=== PATIENT | female | born 1990 | race Caucasian/White ===

== ENCOUNTER → 2023-02-13 12:53 | Outpatient (CLI) | payer BC, SELFPAY ==
--- NOTE | ~2023-02-13 | MR_ITS ---
EXAMINATION: MR knee LT wo con DATE: 02/13/2023 13:26 INDICATION: Internal derangement of the left knee with left knee joint effusion. TECHNIQUE: Magnetic resonance imaging (MRI) of the left knee was performed without intravenous contra st. Sequences included coronal PD-weighted FSE, coronal PD-weighted FS FSE, sagittal T2-weighted FSE , sagittal PD-weighted FS FSE and axial PD weighted fat saturated FSE. COMPARISON: None. FINDINGS: Medial compartment: Displaced bucket-handle tear of the medial meniscus with small amount residual nondisplaced meniscus along the body and posterior horn with the majority the tissue in the body and posterior horn lateral ly displaced and extending anteroposteriorly between the articular cartilage of the lateral margin an terior weightbearing medial femoral condyle and the cartilage along the shoulder of the intercondylar eminence. There is a small secondary tear plane along the inner margin of the remaining nondisplaced meniscal tissue at the posterior horn. Mild partial-thickness cartilage loss and chondral surface re gularity along the posterior rim of the medial tibial plateau. Likely tiny partial-thickness chondral fissure along the anterior weightbearing medial femoral condyle. Lateral compartment: Lateral meniscus is normal. Deep chondral fissuring along the anterior weightbearing medial femoral c ondyle. There is mild shallow chondral surface regularity along the posterior weightbearing lateral f emoral condyle. Additional partial thickness chondral fissuring at the central to medial aspect of th e lateral tibial plateau where there is small region of mild subarticular edema-like signal change. Patellofemoral compartment: Patellar cartilage is normal. Deep chondral fissuring along the trochlear groove and inferior aspect of the medial trochlea. Associated small focus of underlying subarticular edema-like signal change at the inferolateral aspect of the medial trochlea. Ligaments and tendons: Postoperative change of prior anterior cruciate ligament reconstruction with failure of the graft. Po sterior cruciate ligament is normal. The medial collateral ligament and fibular collateral ligament c omplex are normal. The extensor mechanism is normal. The visualized medial and lateral hamstring tend ons as well as the iliotibial band are normal. Fluid: Moderate-sized left knee joint effusion. No loose osteochondral bodies identified. Osseous/other: Bone alignment is normal. No fracture or pathologic marrow replacing process. IMPRESSION: 1. Failure of a prior anterior cruciate ligament reconstruction. 2. Displaced bucket-handle tear of the medial meniscus. 3. 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 4. Moderate-sized knee joint effusion. Reviewed, dictated and finalized at location A. IMPRESSION: 1. Failure of a prior anterior cruciate ligament reconstruction. 2. Displaced bucket-handle tear of the medial meniscus. 3. Mild tricompartmental osteoarthritis with moderate grade chondromalacia in a ll 3 compartments and small regions of high-grade chondral malacia the lateral and patellofemoral compartments. 4. Moderate-sized knee joint effusion.
== END ==
PROVIDERS: PCP Physician Assistant; Visit Provider Physician Assistant
DX: M17.12 Unilateral primary osteoarthritis, left knee (principal); M25.462 Effusion, left knee; S83.212A Bucket-handle tear of medial meniscus, current injury, left knee, initial encounter; M94.262 Chondromalacia, left knee
CPT/HCPCS: 73721

== ENCOUNTER 2025-01-09 10:53 | Emergency (ER) | payer BC, SELFPAY ==
--- OUTSIDE RECORDS SUMMARY | 2021-09-05 10:50 | XMS_ITS | Continuity of Care Document ---
Author Organization [facility] Address [address] [place] [id number] Phone Care Team Providers Care Helicopter Crew Chief Name Role Phone Sandro Jackson MD Unavailable Unavailable Allergies, Adverse Reactions, Alerts Substance Reaction Status Criticality No Known Allergies Active No Inform ation Medications Medication Instructions Dosage Effective Dates (start - stop) Status Comments dicyclomine 20 mg tablet take 1 tablet by oral route 4 times a day as needed for abdomen pain & diarrhea - Active Wellbutrin 300 mg Tab Er 1 times per day - Active Dialyvite Vitamin D3 Max 1.25 mg Tab 1 times per day - Active Nexium 10 mg Oral 1 times per day - Active Wellbutrin XL 300 mg 24 hr tablet, extended release take 1 tablet by oral route every day 300 MG - Active esomeprazole magnesium DR 10 mg granules delayed release for susp daily - Active Procedures Procedure Date Offic/outpt E&m New Mod-mi 45 2 Advance Directives Directive Yes / No Effective Date File Name No Information Encounters Encounter Description Practice Location Reason(s) For Visit Diagnoses Date Provider Providers Copied on Encounter [facility], [address] [place] [address], [id number] tel:[phone] [facility] No Information 2 Manuel Jo. [address] [place] [address], [id number] , . tel:[phone] [facility], [address] [place] [address], [id number] tel:[phone] [facility] No Information 2 [facility] Sruthi. [address] [place] [address], [id number] , [place]. [phone] Offic/outpt E&m New Mod-hi 45 [facility], [address] [place] [address], [place], [place], [id number] tel:[phone] [facility] abdominal pain (chief complaint) Intermittent diarrheaRecta l bleedingLUQ abdominal painHeartburn 2 [facility] Sruthi. [address] [place] [address], [id number] , [place]. tel:[phone] Referring Provider: Jo Ann Bermeo MD, [address] , [place], [address]. tel:[phone] Family History Family Member Type Diagnosis Age At Onset Paternal Grandmother Problem (finding) Diabetes Type I I Paternal Grandmother Problem (finding) Thyroid Disease Paternal Grandmother Problem (finding) Asthma/COPD Father Problem (finding) Cancer (other types) Father Problem (finding) Alcoholism Father Problem Colon polyps Maternal Grandmother Problem (finding) Kidney Disease Paternal Grandmother Problem (finding) Heart Disease Paternal Grandmother Problem (finding) Colon Cancer Maternal Grandmother Problem (finding) Breast Cancer Paternal Grandmother Problem (finding) Stroke Maternal Grandfather Problem (finding) Heart Disease Father Problem (finding) Diabetes Type II Paternal Grandmother Problem (finding) Cancer (other t ypes) Paternal grandmother Problem cancer of colon 70 Father Problem (finding) Heart Disease Immunizations Vaccine Date Status Comments Flu (split) (3 yrs or older) administered Source: Other Provider SARS-COV-2 COVID-19 Inactiva luis Virus Non-US Vaccine Product (QAZCOVID-IN) administered Adelina rce: Other Provider SARS-COV-2 COVID-19 Non-US V accine, Specific Product Unknown administered Source: Other P rovider SARS-COV-2 (COVID-19) vaccin e, UNSPECIFIED administered Source: Other Provid er Payers Payer name Insurance type Covered green party ID Authoriza tion(s) No Information Social History Type Description Quantity Date Captured Comments Sex Female Smoking Status No Information Chief Complaint And Reason For Visit No Information Reason For Referral Reason For Referral No Information Plan Of Treatment Date Type Action Status Patient Education Colonoscopy: Before You r Procedure completed Patient Education Using Your Medicines: C are Instructio~ completed Patient Education Upper GI Endoscopy: Bef ore Your Proce~ completed History Of Present Illness Encounter Date Complaint History Of Prese nt Illness abdominal pain The patient is a 31-year-old, female referred for abdominal pain and rectal bleeding.The patient reports a chronic, intermittent LUQ pain since the of her son approximately 6 years ago. This presents within 15-20 minutes of a meal, and feels like a burning / stabbing sort of pain. The patient may be temporarily improved with TUMS, esomeprazole or a bowel movement, but will reoccur shortly after and will often be present in this fashion for 1-3 days. Accompanying the pain she has diarrhea. This also lasts for 1-3 days, and often will progress into bloody diarrhea after several bowel movements. Outside of these events she has a daily bowel movement without blood. She notes chronic heartburn which is typically well managed with esomeprazole 20mg daily. She has breakthrough symptoms a couple of times monthly. She notes a 60 pound weight loss over two years related to reduced portions, reduced carbohydrates and increased physical activity. Functional Status Date Functional Assessmen t No Information Instructions Date Instruction Additional Infor neisha keep a food diary, m onitor for potential triggers to symptoms Related to Intermittent diarrhea dicyclomine 20mg QID prn for abdominal pain and / or diarrhea #60 + 1 Related to Intermittent diarrhea continue esomeprazole daily Rela luis to Heartburn continue with diet as currently doing Related to Heartburn Assessments Type Assessment Date No Information Patient Care Teams Name Effective Dates (start - stop) Status Members No Information
--- OUTSIDE RECORDS SUMMARY | 2022-08-09 02:49 | XMS_ITS | Continuity of Care Document ---
Author Organization [facility] Address [address] [place] [address] Phone Care Team Providers Care Iv Rn Name Role Phone Ira Montesinos PT Unavailable Unavailable Procedures Procedure Date Therapeutic Activities Neuromuscular Re-Ed Therapeutic Exercise Manual Therapy Therapeutic Activities Neuromuscular Re-Ed Therapeutic Exercise Manual Therapy Hot or Cold Pack Progress Note Therapeutic Activities Neuromuscular Re-Ed Therapeutic Exercise Manual Therapy Hot or Cold Pack Therapeutic Activities Neuromuscular Re-Ed Therapeutic Exercise Manual Therapy Hot or Cold Pack Therapeutic Activities Neuromuscular Re-Ed Therapeutic Exercise Manual Therapy Therapeutic Activities Neuromuscular Re-Ed Therapeutic Exercise Manual Therapy Therapeutic Activities Neuromuscular Re-Ed Therapeutic Exercise Manual Therapy Hot or Cold Pack Therapeutic Activities Neuromuscular Re-Ed Therapeutic Exercise Manual Therapy Hot or Cold Pack Therapeutic Activities Neuromuscular Re-Ed Therapeutic Exercise Manual Therapy Hot or Cold Pack Therapeutic Activities Neuromuscular Re-Ed Therapeutic Exercise Manual Therapy Hot or Cold Pack PT Evaluation Moderate Complexity Therapeutic Activities Therapeutic Exercise Manual Therapy Advance Directives Directive Yes / No Effective Date File Name No Information Encounters Encounter Description Practice Location Reason(s) For Visit Diagnoses Date Provider Providers Copied on Encounter [facility], [address], [id number], tel:[phone] [place] No Information Yamel Mack [facility] [place] [address], [id number], tel:[phone] [place] No Information Yamel Huertas . Referring Provider: Jo Ann Bermeo, [address] [facility] [place], [address]. tel:[phone] [facility], [place], [id number], tel:[phone] [place] No Information Yamel Mack Referring Provider: Jo Ann Bermeo, [address] [place], [address]. tel:[phone] [facility], [address], [place], [place], [id number], tel:[phone] [place] No Information Yamel Huertas . Referring Provider: Jo Ann Bermeo [address] [place], [address]. tel:[phone] [facility], [address] [address], [place], [place], [id number], [place] tel:[phone] [place] No Information Yamel Roth. . Referring Provider: Jo Ann Bermeo, [address] [place], [address]. tel:[phone] [facility], [address] [address], [place], [place], [id number], [place] tel:[phone] [place] No Information Yamel Roth. . Referring Provider: Jo Ann Bermeo, [address] [place], [address]. tel:[phone] [facility], [address] [address], [place], [place], [id number], [place] tel:[phone] [place] No Information Yamel Roth. . Referring Provider: Jo Ann Bermeo, [address] [place], [address]. tel:[phone] [facility], [address], [id number], [place] tel:[phone] [place] No Information Yamel Roth. . Referring Provider: Jo Ann Bermeo, [address] [place], [address]. tel:[phone] [facility], [address] [address], [place], [place], [id number], [place] tel:[phone] [place] No Information Yamel Roth. . Referring Provider: Jo Ann Bermeo, [address] [place], [address]. tel:[phone] [facility], [address], [id number], tel:[phone] [place] No Information Yamel Huertas . Referring Provider: Jo Ann Bermeo, [address] [place], [address]. tel:[phone] [facility], [address], [id number], tel:[phone] [place] No Information Yamel Huertas . Referring Provider: Jo Ann Bermeo, [address] [place], [address]. tel:[phone] [facility], [address], [id number], tel:[phone] [place] No Information Yamel Huertas . Referring Provider: Jo Ann Bermeo, [address] [place], [address]. tel:[phone] Family History Family Member Type Diagnosis Age At Onset No Information Payers Payer name Insurance type Covered democrat ID Authoriza tiosvaldo(s) Self Pay - GFE Social History Type Description Quantity Date Captured Comments Sex Female Smoking Status No Information Chief Complaint And Reason For Visit No Information Reason For Referral Reason For Referral No Information History Of Present Illness Encounter Date Complaint History Of Prese nt Illness No Information Functional Status Date Functional Assessmen t No Information Instructions Date Instruction Additional Infor mation Giving encouragement to exercise Related to Overweight Giving encouragement to exercise Related to Overweight Assessments Type Assessment Date No Information Patient Care Teams Name Effective Dates (start - stop) Status Members No Information
--- OUTSIDE RECORDS SUMMARY | 2025-01-09 10:56 | XMS_ITS | Clinical Summary ---
Author Organization [facility] Address [address] [place] [address] Care Team Providers Care Jig Hand Name Role Phone Brian Bee MD Primary Care Provider [phone] Travis Hernandez Unavailable [phone] Allergies Active Allergy Reactions Criticality Noted Date Comments Penicillins Rash,Urticaria Medium 02/22/2011 Rash Sulfamethoxazole-Trimethopri m Headache,Nausea And Vomiting Medium 06/22/2010 Medications , 1 mg-20 mcg (21)/75 mg (7) per tablet 12/21/2019 Active vit37/iron/folic acid (PRENATA ORAL) Take 1 capsule by mouth daily 04/18/2022 Active Lactobacillus acidophilus (PROBIOTIC ORAL) Take by mouth Active escitalopram (LEXAPRO) 10 mg tablet Take 1 tablet (10 mg total) by mouth daily 02/12/2023 Active ascorbic acid (vitamin C) 1,000 mg tablet Take 1 tablet (1,000 mg total) by mouth daily Active cholecalciferol (VITAMIN D-3) 2000 unit capsule Take 1 capsule (2,000 Units total) by mouth daily 30 capsule 02/26/2023 Active PNV-DHA 27 mg iron-1 mg -300 mg capsule Take 1 tablet by mouth daily 04/23/2023 Active PNV 87-wiil-bipexjhx late-dha 29 mg iron-1 mg -350 mg comb pack,tablet DR,capsule DR Take 1 capsule by mouth daily 04/23/2023 Active Active Problems Problem Noted Date Diagnosed Date Left anterior cruciate ligament tear 02/21/2023 Bucket handle tear of medial meniscus of left kn ee 02/21/2023 Locked knee, left 02/21/2023 Cubital tunnel syndrome on right 02/25/2020 Overview (02/25/2020): Added automatically from request for surgery [id number] Labile blood pressure 12/22/2015 Obesity with body mass index 30 or greater 12/18 Arterial fibromuscular dysplasia 12/19/2015 Elevated blood pressure read ing without diagnosis of hypertension 12/19/2015 Right hand pain Entrapment of right ulnar nerve Surgical History Surgery Date Site/Laterality Comments ANTERIOR CRUCIATE LIGAMENT REPAIR Left ACL repair ULNAR NERVE REPAIR Right Family History Medical History Relation Name Comments Heart attack Mother Family history of myocardial infarction - (Added by TW Conv) Diabetes type II Other 1 Family hist ory of Diabetes mellitus type 2; Clotting disorder Other 2 Heart disease Other 2 Family history of Heart disease; Relation Name Status Comments Mother Other 1 Other 2 Social History Tobacco Use Types Packs/Day Years Used Date Smoking Tobacco: Never Smokeless Tobacco: Never Tobacco Cessation:Counseling Given: Not Answered Alcohol Use Standard Drinks/Week Comments Yes 0 (1 standard drink = 0.6 oz pur e alcohol) socially AUDIT-C Answer Date Recorded Q1: How often do you have a drink containing alc ohol? Monthly or less 02/21/2023 Q2: How many drinks containi ng alcohol do you have on a typical day when you are drinking? 1 or 2 02/21/2023 Frequency of Binge Drinking Not on file 05/2022 Personal Safety Answer Date Recorded Have you ever been in or are you currently in a harmful physical or emotional relationship or is someone making you feel afraid or unsafe? Denies 02/26/2023 Comments No Sex and Gender Information Value Date Recorded Sex Assigned at Not on file Legal Sex Female 3:26 AM AGENCY SERVICE REPRESENTATIVE Gender Identity Not on file Sexual Orientation Not on file Obstetrics History Last Filed Vital Signs Vital Sign Reading Time Taken Comments Blood Pressure 122/80 05/20/2023 8:24 AM AGENCY SERVICE REPRESENTATIVE Pulse 69 05/20/2023 8:24 AM AGENCY SERVICE REPRESENTATIVE Temperature 36.9 C (98.5 F) 02/26/2023 2:43 PM AGENCY SERVICE REPRESENTATIVE Respiratory Rate 20 02/26/2023 3:11 PM AGENCY SERVICE REPRESENTATIVE Oxygen Saturation 96% 02/26/2023 3:11 PM AGENCY SERVICE REPRESENTATIVE Inhaled Oxygen Concentration - - Weight 108 kg (238 lb 1.6 oz) 05/20/2023 8:24 AM AGENCY SERVICE REPRESENTATIVE Height 175.3 cm (5' 9) 05/20/2023 8:24 AM AGENCY SERVICE REPRESENTATIVE Body Mass Index 35.16 05/20/2023 8:24 AM AGENCY SERVICE REPRESENTATIVE Plan of Treatment Health Maintenance Due Date Last Done Comments Cervical Cancer Screening 1989 Depression Screening 1989 Hepatitis C Screening 1989 Varicella Vaccines (2 of 2 - 2-dose childhood series) 03/21/1996 12/28/1995 Regular Well Visit/Exam 18-64 2007 Covid-19 Vaccine ( season) 2024 04/28/2021 Influenza Vaccine (#1) 2024 , 02/02/2022, 01/17/2021, Additional history exists DTaP/Tdap/Td Vaccine (10 - Td or Tdap) 07/17/2032 07/17/2022, 06/18/2017, 11/07/2014, Additional history exists Hepatitis B Screening Completed 04/20/1999, 999 HPV Vaccines Completed 10/21/2007, 04/2007, 04/22/2007 Pneumococcal vaccine <65 Aged Out No longer eligible based on patient's age to complete this topic Medical Devices Implanted Type Area Tobacco Packer Device Identifier Shelf Expiration Date Model / Serial / Lot Depuy Mitek Truespan Orthocord Nonabsorbable 2 Backstop Braid 24d 2-0 [place] [id number] - [id number] Implanted:Qty: 1 on 02/26/2023 by Renato Fernandez MD at [facility] Left: Knee Depuy Mitek 09/19/2025 [id number] / / [id number] [employer] Suture [place] Knotless Tightrope Ii [id number] - [id number] Implanted:Qty: 1 on 02/26/2023 by Renato Fernandez MD at [facility] Left: Knee [employer] Inc 06/20/2027 AR-1588BTB -IB / / [id number] Lifenet Flexigraft Graftlink 7.5-10.5mm 60-80mm Frozen Allograft Fgl - [id number] - [id number] Implanted:Qty: 1 on 02/26/2023 by Renato Fernandez MD at [facility] Left: Knee Lifenet 05/10/2025 [facility] / [id number] / [employer] Swivelock C 4.75mm 19.1mm Closed Eyelet Vent [place] Suture Ar-2324bcc - [id number] Implanted:Qty: 1 on 02/26/2023 by Renato Fernandez MD at [facility] Left: Knee [employer] 01/19/2027 AR-[id number] / / [id number] [employer] Button Tightrope Abs Round Concave 11mm [id number] - [id number] Implanted:Qty: 1 on 02/26/2023 by Renato Fernandez MD at [facility] Left: Knee [employer] 05/22/2027 AR-1588TB- [id number] / / [id number] Depuy Mitek Truespan Orthocord Nonabsorbable 2 Backstop Braid 24d 2-0 [place] 407555 - [id number] Implanted:Qty: 1 on 02/26/2023 by Renato Fernandez MD at [facility] Left: Knee Depuy Mitek 09/19/2025 [id number] / / [id number] Depuy Mitek Truespan Orthocord Nonabsorbable 2 Backstop Braid 24d 2-0 [place] 839472 - [id number] Implanted:Qty: 1 on 02/26/2023 by Renato Fernandez MD at [facility] Left: Knee Depuy Mitek 09/19/2025 [id number] / / [id number] Depuy Mitek Truespan Orthocord Nonabsorbable 2 Backstop Braid 24d 2-0 [place] 890139 - [id number] Implanted:Qty: 1 on 02/26/2023 by Renato Fernandez MD at [facility] Left: Knee Depuy Mitek 09/19/2025 [id number] / / [id number] Depuy Mitek Truespan Orthocord Nonabsorbable 2 Backstop Braid 24d 2-0 [place] 965214 - [id number] Implanted:Qty: 1 on 02/26/2023 by Renato Fernandez MD at [facility] Left: Knee Depuy Mitek 09/19/2025 [id number] / / [id number] Depuy Mitek Truespan Orthocord Nonabsorbable 2 Backstop Braid 24d 2-0 [place] 605283 - [id number] Implanted:Qty: 1 on 02/26/2023 by Renato Fernandez MD at [facility] Left: Knee Depuy Mitek 09/19/2025 [id number] / / [id number] Depuy Mitek Truespan Orthocord Non Absorbable 2 Backstop Braid Needle 12d 2-0 928335 - [id number] Implanted:Qty: 1 on 02/26/2023 by Renato Fernandez MD at [facility] Left: Knee Depuy Mitek 04/21/2023 [id number] / / [id number] Depuy Mitek Truespan Orthocord Non Absorbable 2 Backstop Braid Needle 12d 2-0 249788 - [id number] Implanted:Qty: 1 on 02/26/2023 by Renato Fernandez MD at [facility] Left: Knee Depuy Mitek 04/21/2023 [id number] / / [id number] [employer] Suture [place] Attachable Button System Tightrope Ii Titanium [id number] - [id number] Implanted:Qty: 1 on 02/26/2023 by Renato Fernandez MD at [facility] Left: Knee [employer] 10/20/2027 AR-1588TN- 21 / / [id number] Insurance 15Five OOS ANTHEM ACCESS Care Teams Jig Hand Relationship Specialty Start Date End Date Brian Bee MD [address] [facility] [address] [place] [address] PCP - General Internal Medicine 02/24/20 Travis Hernandez PA [address] [place] [address] [address] BOWMAN [address] [place] [address] Physician Hvac Technician [facility]idential [facility] 02/26/23
--- OUTSIDE RECORDS SUMMARY | 2025-01-09 10:56 | XMS_ITS | Clinical Summary ---
Author Organization [facility] Address [address] [place] [address] Care Team Providers Care Two Way 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 Name Role Phone Brian Bee MD Primary Care Provider [phone] Den Rider MD Unavailable [phone] Elva Farfan MD Unavailable [phone] Farshad Warren MD Unavailable Renato Fernandez MD Unavailable [phone] Brian Bee MD Unavailable [phone] Source Comments [facility],non-owned Affiliates and Associated Physician Practices is amultiple site organization consisting of ambulatory clinics and hospital sitesin [place], [place], [place] and [place]. This disclosure is being madepursuant to the Care Everywhere program and may not contain all information available regarding this patient. Last updated 18.[facility] Allergies Active Allergy Reactions Criticality Noted Date Comments Penicillins Urticaria Medium 02/22/2011 Sulfamethoxazole W-Trimethoprim Nausea and/or Vomiting,Headache Medium 06/22/2010 Medications * Be aware that medications may not be up to date on this document. Alwaysverify current medications with the patient. VITAMIN D PO Take 1,000 Units by mouth once daily Active Ascorbic Acid (ERMA-C PO) Active MAGNESIUM PO MAGNESIUM GLYCINATE Active Probiotic Product (PROBIOTIC GUMMIES PO) Active norethindrone (Incassia) 0.35 MG tablet Take 1 (one) tablet by mouth once daily 84 tablet 4 03/11/20 24 Active Prenat w/o C-BL-Ecsqjsu-FA-D ROTH (PNV-DHA) 27-0.6-0.4-300 MG CAPS TAKE 1 CAPSULE BY MOUTH EVERY DAY 30 capsule 12 04/24/19 25 Active buPROPion XL 24hr (Wellbutrin-XL) 150 MG tabletIndications :Disturbed concentration,His tory of depression Take 1 (one) tablet by mouth every morning 90 tablet 1 09/19/19 25 Active semaglutide (Wegovy) 1.7 MG/0.75ML penIndications:Me tabolic Dysfunction Associated Steatohepatitis,O besity Inject 1.7 mg subcutaneously every 7 days (once a week) Reasons: 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 FOR INFAMATION OF EYELID LINING DUE TO ALLERGY 6 mL 2 11/27/19 25 Active busPIRone (Buspar) 10 MG tabletIndications :LEANN (generalized anxiety disorder) TAKE 1 TABLET BY MOUTH THREE TIMES A DAY 90 tablet 5 12/05/19 25 Active amphetamine-dextr oamphetamine (Adderall) 10 MG tabletIndications :Disturbed concentration,Att ention deficit hyperactivity disorder (ADHD), combined type Take 1 (one) tablet by mouth Every morning and lunchtime 60 tablet 12/24/19 25 Active amphetamine-dextr oamphetamine (Adderall) 10 MG tabletIndications :Disturbed concentration,Att ention deficit hyperactivity disorder (ADHD), combined type Take 1 (one) tablet by mouth Every morning and lunchtime 60 tablet 09/19/19 25 025 Disconti orlando(Reo rder) Active Problems Patient Care Coordination No te Formatting of this note migh t be different from the original. NOPP/MFCC 05/2017 NOPP/MFCC 02/2017 Den Rider MD: Long conversation (40min) with patient today (05/30/2017) re U/S results from yesterday. Discussed IUGR - how measurements are done, what was measured. Discussed possibilities of chromosomal anomaly despite normal sequential screen. Discussed NIPT and amniocentesis in detail (but not risks.) Did not discuss possibility of infectious etiology. Reviewed family history - mother of a PE, but had been in hospital for 2 weeks prior. No other h/o DVT or PE. + h/o RPL in aunts. They took progesterone. Patient has been exercising and has gained no weight this . Discussed net positive 300cal daily at this time. Also decrease exercise to moderate walking, recumbent bike. Discussed sleeping positions - encouraged her to turn over to her side if she wakes up on her back, but that is NOT what caused the IUGR. Discussed testing - Weekly BPP & dopplers and need for twice weekly testing in the future and what we are looking for. Discussed consultation vs co-management vs tx of care. Patient prefers co- management if indicated rather than tx of care. Problem Noted Date Diagnosed Date History of repair of ACL 09/18/2024 Overview (09/18/2024): Replacement x 2. Meniscus repair also. Attention deficit hyperactiv ity disorder (ADHD), combined type 06/26/2024 Overview (06/26/2024): ADHD screen with ASRS V1.1 Part A = 5! Part B subscores 4,3 This does affect home life, work life, and social life. LEANN (generalized anxiety disorder) 06/26/2024 Steatohepatitis 04/08/2024 Situational anxiety 04/08/2024 Disturbed concentration 04/08/2024 History of depression 04/08/2024 High cholesterol 04/08/2024 Bucket handle tear of medial meniscus of left kn ee 02/21/2023 04/23/2023 Gallbladder polyp 07/17/2022 Overview (07/27/2024): Noted on ultrasound 06/20/22. Stable 2-3 mm, 03/2024 with no need for further follow up imaging. Class 1 obesity due to exces s calories without serious comorbidity with body mass index (BMI) of 30.0 to 30.9 in adult 12/19/2015 Overview (09/18/2024): History of higher BMI, over 30. Excellent response to Wegovy compounded at 1.7 mg weekly. History of syncope 02/21/2012 Seasonal allergic rhinitis due to pollen 009 POTS (postural orthostatic tachycardia syndrome) Overview (11/23/2020): Does fine with good sodium intake. Resolved Problems Problem Noted Date Diagnosed Date Resolved Date Overweight (BMI 25.0-29.9) 06/26/2024 0 09/18/2024 Left anterior cruciate ligament tear sequelae 02/22/2004/23/2023 09/18/2024 Locked knee, left 02/21/2023 04/23/2023 04/08/2024 Gestational hypertension, third trimester 09/19/2022 10/02/2022 GBS (group B Streptococcus c arrier), +RV culture, currently 09/14/2022 10/02/2022 Overview (09/14/2022): Will give ancef in labor for prophylaxis. (PCN allergic.) Vaginal discharge 09/10/2022 11/06/2022 Decreased movements in third trimester, single or unspecified fetus 09/07/2022 10/02/2022 Echogenic focus of heart of fetus affecting antepartum care of mother 05/29/2022 10/02/2022 IUGR (intrauterine growth re striction) in prior , 02/25/2022 10/02/2022 Overview (02/25/2022): Will have patient start ASA 162mg at 12 weeks gestation. Entrapment of right ulnar nerve 03/14/2020 03/14/2020 Right hand pain 03/14/2020 03/14/2020 Prior complicated by preeclampsia, antepartum 03/14/2020 10/02/2022 Cubital tunnel syndrome on right 02/25/2020 03/14/2020 Overview (03/14/2020): Added automatically from request for surgery [id number] Severe pre-eclampsia in third trimester 08/17/2017 09/20/2017 Overview (08/17/2017): IOL for preeclampsia. Developed severe BP. Started on Mag for sz ppx. Elevated blood pressure affe cting in third trimester, antepartum 08/16/2017 8 Transient hypertension of pr egnancy, antepartum 08/13/2017 08/17/2017 Threatened labor 07/01/2017 08/17/2017 Encounter for ultrasound to assess interval growth of fetus 05/29/2017 12/25/2017 Overview (07/20/2017): IMO update 07 21 2017 Small for gestational age fe tus affecting mother, antepartum 05/15/2017 09/20/2017 Overview (06/17/2017): 06/05/2017: Amniocentesis at [facility] done (Dr. Luciano). Neg for toxo 05/31/2017: MFM consultation done with Dr. Rust. Note in chart. 05/28/2017: 25w4d: 656g, 3%ile, Weekly testing with BPP & Dopplers ordered. MFM consultation. Normal Sequential screen. 05/15/2017: MFM ultrasound shows EFW = 8%ile with normal TAMI. Repeat ultrasound for growth in 2 weeks. Sequential Screen - Normal 03/05/2017 0 09/20/2017 Overview (04/03/2017): 1st look on 03/01/2017 Result: 1:5,600 for DS and 1:10,000 for Trisomy 18 2nd blood draw ideal dates: 03/26/17-04/09/17 Letter sent 03/05/2017 Final result: 1:10,000 for DS and 1:10,000 for Trisomy 18, Not Increased for ONTD POTS in 02/23/2017 09/20/2017 Overview (02/23/2017): Normal BMP at the beginning of . Patient encouraged to wear compression stockings. Supervision of high-risk 02/13/2017 09/20/2017 Overview (06/19/2017): 06/19/2017: Tdap given follow up ultrasound shows SGA. 06/19/2017: all testing normal to date 04/10/2017: incomplete ultrasound, girl, Repeat in 4 weeks. 01/23/17: Flu shot given OB Labs: done at [facility], scanned under media tab: A+/I/-/-/-/-, CBC nl, brvk6o=7.9, Ab screen neg ANNETTE = 09/07/17. LMP 12/01/16, 7.4 u/s on 01/23/17. Obesity affecting 02/13/2017 09/20/2017 Overview (02/23/2017): Ftre8m=1.9 Prepreg BMI = 33 Patient desires 12/12/2016 Labile blood pressure 12/22/20152022 Elevated blood pressure read ing without diagnosis of hypertension 12/19/2015 03/14/2020 Panic disorder with agoraphobia 07/28/2015 11/23/2020 Overview (03/13/2019): Not panic but high anxiety in large groups. Mainly issue with lots of people for the amount of space. Major depression 03/10/2015 11/23/2020 Dysmenorrhea 11/02/2014 11/23/2020 Overview (01/25/2017): Improved when she took OCP & advil 800mg Low back pain 06/22/2010 07/28/2015 Overview (02/27/2015): Not bad lately as of 02/21/2012. Migraine 08/26/2008 03/14/2020 Overview (07/28/2015): Ibuprofen does ok for these. Rare as of 07/28/2015 Brown recluse spider bite or sting 08/26/2008 11/01/2009 Syncope 02/21/2012 Overview (02/21/2012): Last occurred 01/21/12 approximately. Dysmenorrhea 02/21/2012 Encounters Date Type Department Care Team Description 12/23/2024 Refill [facility] - Internal Medicine [address] [place] [id number] Brian Bee MD MEDICATION REFILL 12/04/[address] [place] [id number] Brian Bee MD Refill Request 11/26/[address] [place] [address] Brian Bee MD Refill Request 11/24/[address] [address] Brian Bee MD MEDICATION REFILL from Last 3 Months Immunizations Immunization Administration Dates Next Due COVID PFIZER 12+YR 30MCG/0.3mL 02/03/2024 Covid Pfizer primary monoval ent 12+ yr 0.3mL Purple cap 04/28/2021 DTaP VACCINE IM (6wk-6yrs) 11/28/1994,,1989,1989,1989 FLU VACCINE TRI IIV3 SPLIT P F IM (FLUVIRIN) 02/02/2024,03/17/2013 HEP A PEDS 2 DOSE 05/07/2000,05/09/1999 HEP B VACCINE, PED/ADOL 04/20/1999,02/21/1999 HIB-HAEMOPHILUS INFLUENZAE B CONJUGATE VACCINE 08/11/1990,04/18/1990 Human Papilloma Virus Vaccine 10/21/2007,06/20/2 008,04/22/2007 INFLUENZA VACCINE 02/07/2023,,02/10/2019,2016,02/17/2015,01/20/2015,01/20/2014,1 ,01/04/2010 INFLUENZA VACCINE, CELL CULT URE, QUADR. (FLUCELVAX QUADRIVALENT; 6MO+) (CCIIV4) 02/02/2022 INFLUENZA VACCINE, QUADR. (F LUZONE; FLULAVAL; FLUARIX; AFLURIA QUADRIVALENT; 6MO+), 0.5 ML (IIV4) 02/10/2020 MMR 11/28/1994,08/11/1990 POLIO OPV 11/28/1994, 1,1989,1989 TDAP (7yrs+) 07/17/2022, 8,11/07/2014,2014 VARICELLA 12/28/1995 Family History Medical History Relation Name Comments Hypertension Father Heart Disease Mother cardiomyopathy Pulmonary Embolism Mother (was in hospital) Cancer - Prostate Paternal Grandfather Diabetes Paternal Grandfather Hypertension Paternal Grandfather Hypertension Paternal Grandmother Defects Neg Hx Congenital Anomalies Neg Hx Osteoporosis Neg Hx Relation Name Status Comments Brother Christopher Alive no kids . Father Alive htn Mother (Age 50) heart dise ase, PE Paternal Grandfather DM,htn Paternal Grandmother htn, Social History Tobacco Use Types Packs/Day Years Used Date Smoking Tobacco: Never Smokeless Tobacco: Never Tobacco Cessation:Counseling Given: Yes Alcohol Use Standard Drinks/Week Comments Not Currently 3 (1 standard drink = 0.6 oz pur e alcohol) AUDIT-C Answer Date Recorded Frequency of Alcohol Consumption Monthly or less 02/04/2019 Average Number of Drinks 1 or 2 019 Frequency of Binge Drinking Not on file 01/20 Overall Financial Resource Strain (CARDIA) Answe r Date Recorded How hard is it for you to pa y for the very basics like food, housing, medical care, and heating? Not hard at all 09/23/2022 PHQ-2 Answer Date Recorded Patient Health Questionnaire-2 Score 0 09/18/2024 [facility] - Occupational Stress Questionnaire Answer Date Recorded Do you feel stress - tense, restless, nervous, or anxious, or unable to sleep at night because your mind is troubled all the time - these days? Not at all 09/23/2022 Hunger Vital Sign Answer Date Recorded Within the past 12 months, y ou worried that your food would run out before you got the money to buy more. Never true 09/24/19 23 Within the past 12 months, t he food you bought just didn't last and you didn't have money to get more. Never true 09/23/2022 PRAPARE - Transportation Answer Date Re corded In the past 12 months, has l ack of transportation kept you from medical appointments or from getting medications? No 07/2022 In the past 12 months, has l ack of transportation kept you from meetings, work, or from getting things needed for daily living? No 09/23/2022 Housing Stability Vital Sign Answer Bobby e Recorded In the last 12 months, was t here a time when you were not able to pay the mortgage or rent on time? No 09/23/2022 In the last 12 months, how many places have you lived? 1 09/23/2022 In the last 12 months, was t here a time when you did not have a steady place to sleep or slept in a fci (including now)? No 09/23/2022 [place] Depression Scale Answer Date Recorded [place] Depression Scale Total 0 11/06/2022 The thought of harming myself has occurred to me . 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 Not on file Not on file Not o n file Last Filed Vital Signs Vital Sign Reading Time Taken Comments Blood Pressure 110/64 09/18/2024 9:06 AM CDT Pulse 83 09/18/2024 9:06 AM CDT Temperature 36.4 C (97.5 F) 09/18/2024 9:06 AM CDT Respiratory Rate 16 09/26/2022 8:00 AM CDT Oxygen Saturation 100% 09/18/2024 9:06 AM CDT Inhaled Oxygen Concentration - - Weight 75.6 kg (166 lb 9.6 oz) 09/18/2024 9:06 A M CDT Height 176.5 cm (5' 9.49) 09/18/2024 9:06 AM CD T Body Mass Index 24.26 09/18/2024 9:06 AM CDT Plan of Treatment Upcoming Encounters Date Type Department Care Team (Late st Contact Info) Description 04/01/2025 8:30 AM BROILER SUPERVISOR Office Visit [facility] - Internal Medicine [address] [place] [address] Brian Bee MD [address] [place] [address] Health Maintenance Due Date Last Done Comments INFLUENZA VACCINE (#1) 2024 , 02/07/2023, 02/02/2022, Additional history exists PAP with HPV 03/11/2029 03/11/2024, 07/2019, 12/25/2017, Additional history exists DTAP/TDAP/TD VACCINES (10 - Td or Tdap) 07/17/2032 07/17/2022, 06/18/2017, 11/07/2014, Additional history exists ZOSTER VACCINE (1 of 2) 2039 HIB VACCINE Completed 08/11/1990, 04/18/1990 HEPATITIS B VACCINE Discontinued 04/20/1999, 9 HPV VACCINE Completed 10/21/2007, 04/2007, 04/22/2007 HEPATITIS C SCREENING Completed 02/23/2022, 021 HIV SCREENING Completed 02/23/2022, 11/21/2020 COVID-19 VACCINE Completed 02/03/2024, 10/2021, 07/22/2020, Additional history exists DEPRESSION SCREENING Completed 06/26/2024, 03/11/2024, 02/23/2022 MENINGOCOCCAL (Group B) VACCINE SHARED DECISION-MAKING Aged Out No longer eligible based on patient's age to complete this topic MENINGOCOCCAL GROUPS A/C/Y/W VACCINE Aged Out No longer eligible based on patient's age to complete this topic PNEUMOCOCCAL VACCINE Aged Out No long er eligible based on patient's age to complete this topic Goals Goal Patient Goal Type Associated Problems Recent Progress Patient-Stated? Author Exercise 3X per week (30 min per time) Exercise No Shannan Garnica Yearly PCP visit Lifestyle No Shannan Garnica Procedures Procedure Name Priority Date/Time Associated Diagnosis Comments LIPID PROFILE Routine 12/03/2024 3:53 PM CDT Steatohepatitis CBC W AUTO DIFFERENTIAL Routine 12/03/2024 3:53 PM CDT Wellness examination COMPREHENSIVE METABOLIC PANEL Routine 12/03/2024 3:53 PM CDT Wellness examination PAP CERVICAL CANCER SCREEN APT Routine 03/11/2024 2:06 PM BROILER SUPERVISOR Well woman exam with routine gynecological exam HEPATITIS C ANTIBODY Routine 02/23/2022 2:39 PM CDT examination or test, positive result OBSTETRIC PANEL Routine 02/23/2022 2:39 PM CDT examination or test, positive result from Last 3 Months or Most Recently Relevant to Health Maintenance Results * (ABNORMAL) CBC WITH DIFFERENTIAL (12/03/2024 3:53 PM CDT) WBC 6.1 3.4 - 10.8 x10E3/uL [facility] ACCOUNT BILL RBC 4.31 3.77 - 5.28 x10E6/uL [facility] ACCOUNT BILL Hemoglobin 13.9 11.1 - 15.9 g/dL [facility] ACCOUNT BILL Hematocrit 42.8 34.0 - 46.6 % [facility] ACCOUNT BILL MCV 99(H) 79 - 97 fL [facility] ACCOUNT BILL MCH 32.3 26.6 - 33.0 pg [facility] ACCOUNT BILL MCHC 32.5 31.5 - 35.7 g/dL [facility] ACCOUNT BILL RDW 11.6(L) 11.7 - 15.4 % [facility] ACCOUNT BILL Platelet Count 279 150 - 450 x10E3/uL [facility] ACCOUNT BILL Granulocytes % 50 Not Estab. % [facility] ACCOUNT BILL Lymphocytes % 40 Not Estab. % [facility] ACCOUNT BILL Monocytes % 7 Not Estab. % [facility] ACCOUNT BILL Eosinophils % 2 Not Estab. % [facility] ACCOUNT BILL Basophils % 1 Not Estab. % [facility] ACCOUNT BILL Granulocytes Absolute 3.0 1.4 - 7.0 x10E3/uL [facility] ACCOUNT BILL Lymphocytes Absolute 2.5 0.7 - 3.1 x10E3/uL [facility] ACCOUNT BILL Monocytes Absolute 0.4 0.1 - 0.9 x10E3/uL [facility] ACCOUNT BILL Eosinophils Absolute 0.1 0.0 - 0.4 x10E3/uL [facility] ACCOUNT BILL Basophils Absolute 0.1 0.0 - 0.2 x10E3/uL [facility] ACCOUNT BILL Immature Granulocytes 0 Not Estab. % [facility] ACCOUNT BILL Immature Granulocytes Absolute 0.0 0.0 - 0.1 x10E3/uL [facility] ACCOUNT BILL Blood BLOOD SPECIMEN / Unknown 12/03/2024 3:53 PM CDT 12/03/2024 Narrative [facility] ACCOUNT BILL - 12/04/2024 7:09 AM CDT Performed at: 01 - [address] [id number] Manufacturing Test Engineer: Antwon Salvador PhD, Phone: [phone] Brian Bee MD LAB - HEMATOLOGY ORDERABLES F inal Result [facility] ACCOUNT BILL [address] [place] [address] * COMPREHENSIVE METABOLIC PANEL (12/03/2024 3:53 PM CDT) Pathologist [facility] Glucose 89 70 - 99 mg/dL [facility] ACCOUNT BILL BUN 18 6 - 20 mg/dL [facility] ACCOUNT BILL Creatinine 0.97 0.57 - 1.00 mg/dL [facility] ACCOUNT BILL eGFR by CKD-EPI 78 >59 mL/min/1.7 3 [facility] ACCOUNT BILL BUN/Creatinine Ratio 19 9 - 23 [facility] ACCOUNT BILL Sodium 140 134 - 144 mmol/L [facility] ACCOUNT BILL Potassium 4.8 3.5 - 5.2 mmol/L [facility] ACCOUNT BILL Chloride 102 96 - 106 mmol/L [facility] ACCOUNT BILL CO2 23 20 - 29 mmol/L [facility] ACCOUNT BILL Calcium 9.9 8.7 - 10.2 mg/dL [facility] ACCOUNT BILL Protein Total 7.0 6.0 - 8.5 g/dL [facility] ACCOUNT BILL Albumin 4.9 3.9 - 4.9 g/dL [facility] ACCOUNT BILL Globulin Total 2.1 1.5 - 4.5 g/dL [facility] ACCOUNT BILL Bilirubin Total 0.8 0.0 - 1.2 mg/dL [facility] ACCOUNT BILL Alkaline Phosphatase 46 44 - 121 IU/L [facility] ACCOUNT BILL AST 30 0 - 40 IU/L [facility] ACCOUNT BILL ALT 27 0 - 32 IU/L [facility] ACCOUNT BILL Blood BLOOD SPECIMEN / Unknown 12/03/2024 3:53 PM CDT 12/03/2024 Narrative [facility] ACCOUNT BILL - 12/04/2024 8:11 AM CDT Performed at: - [facility] [id number] Manufacturing Test Engineer: Antwon Salvador PhD, Phone: [phone] Brian Bee MD LAB - CHEMISTRY ORDERABLES Fi nal Result Performing Organization Address City/[facility]/ZIP Co de Phone Number [facility] ACCOUNT BILL [address] [place] [address] * (ABNORMAL) LIPID PROFILE (12/03/2024 3:53 PM CDT) Cholesterol 197 100 - 199 mg/dL [facility] ACCOUNT BILL Triglycerides 46 0 - 149 mg/dL [facility] ACCOUNT BILL HDL Cholesterol 61 >39 mg/dL [facility] B[facility] VLDL Calculated 9 5 - 40 mg/dL [facility] ACCOUNT BILL LDL Calculated 127(H) 0 - 99 mg/dL [facility] ACCOUNT BILL Blood BLOOD SPECIMEN / Unknown 12/03/2024 3:53 PM CDT 12/03/2024 Narrative [facility] ACCOUNT BILL - 12/04/2024 8:11 AM CDT Performed at: - [facility] [address] [id number] Manufacturing Test Engineer: Antwon Salvador PhD, Phone: [phone] Brian Bee MD LAB - CHEMISTRY ORDERABLES Fi nal Result Performing Organization Address City/[facility]/ZIP Co de Phone Number [facility] ACCOUNT BILL [address] [place] [address] * PAP CERVICAL CANCER SCREEN APT (03/11/2024 2:06 PM BROILER SUPERVISOR) Age Gdln ACOG Testing 30-65 [facility] ACCOUNT BILL Comment: Performed at: 02 - [facility] [address] [address] [place], [place] [id number] Manufacturing Test Engineer: Morgan Page MD, Phone: [phone] Performed at: - [facility] [address], [place] [id number] Manufacturing Test Engineer: Anita Deras MD, Phone: [phone] Performed at: - [facility] [address], [place] [id number] Manufacturing Test Engineer: Anita Deras MD, Phone: [phone] Diagnosis Comment [facility] ACCOUNT BILL Comment:NEGATIVE FOR INTRAEP ITHELIAL LESION OR MALIGNANCY. Specimen Adequacy Comment [facility] ACC[facility] B[facility] Comment: Satisfactory for evaluation. Endocervical and/or squamous metaplastic cells (endocervical component) are present. Clinician Provided ICD10 Comment [facility] ACCOUNT BILL Comment:Z01.419 Performed by Comment [facility] ACCOUNT BILL Comment:Bravo Neville chnologist (ASCP) Comment . [facility] ACCOUNT BILL Note Comment [facility] ACCOUNT BILL Comment: The Pap smear is a screening test designed to aid in the detection of premalignant and malignant conditions of the uterine cervix. It is not a diagnostic procedure and should not be used as the sole means of detecting cervical cancer. Both false-positive and false-negative reports do occur. IGLBP CPT Code Automation Comment [facility] ACCOUNT BILL Comment: This liquid based ThinPrep(R) pap test was screened with the use of an image guided system. Human papillomavirus Aptima Negative Negative [facility] ACCOUNT BILL Comment: This nucleic acid amplification test detects fourteen high-risk HPV types (16,18,31,33,35,39,45,51,52,56,58,59,66,68) without differentiation. HPV Genotype Reflexed Comment [facility] ACCOUNT BILL Comment:Criteria not met, HP V Genotype not performed. ENTIRE ENDOCERVIX / Unknown 03/11/2024 2:06 PM BROILER SUPERVISOR 03/11/2024 Comment:Endocrvx Release to p Narrative [facility] ACCOUNT BILL - 03/19/2024 1:08 PM BROILER SUPERVISOR Performed at: - [facility] [address], [place] [id number] Manufacturing Test Engineer: Anita Deras MD, Phone: [phone] Specimen Comment: [id number] Specimen Comment: Source.............Cervix;Endocervix Specimen Comment: No. of containers..01 ThinPrep Vial us Den Rider MD LAB - PATHOLOGY/CYTOLOGY ORD ERABLES Final Result [facility] ACCOUNT BILL [address] [place] [address] * (ABNORMAL) OBSTETRIC PANEL (02/23/2022 2:39 PM CDT) Hepatitis B Virus Surface Antigen Negative Negative [facility] ACCOUNT BILL RPR Non Reactive Non Reactive [facility] ACCOUNT BILL Rubella Antibody 1.19 Immune >0.99 index [facility] ACCOUNT BILL Comment: Non-immune <0.90 Equivocal 0.90 - 0.99 Immune >0.99 ABO A [facility] ACCOUNT BILL Rh Type Positive [facility] ACCOUNT BILL Comment: Please note: Prior records for this patient's ABO / Rh type are not available for additional verification. Antibody Screen Negative Negative [facility] ACCOUNT B[facility] HIV Screen 4th Generation w Reflex Non Reactive Non Reactive [facility] ACCOUNT BILL Comment: HIV Negative HIV-1/HIV-2 antibodies and HIV-1 p24 antigen were NOT detected. There is no laboratory evidence of HIV infection. WBC 8.9 3.4 - 10.8 x10E3/uL [facility] ACCOUNT BILL RBC 4.17 3.77 - 5.28 x10E6/uL [facility] ACCOUNT BILL Hemoglobin 13.6 11.1 - 15.9 g/dL [facility] ACCOUNT BILL Hematocrit 40.0 34.0 - 46.6 % [facility] ACCOUNT BILL MCV 96 79 - 97 fL [facility] ACCOUNT BILL MCH 32.6 26.6 - 33.0 pg [facility] ACCOUNT BILL MCHC 34.0 31.5 - 35.7 g/dL [facility] ACCOUNT BILL RDW 11.5(L) 11.7 - 15.4 % [facility] ACCOUNT BILL Platelet Count 258 150 - 450 x10E3/uL [facility] ACCOUNT BILL Granulocytes % 64 Not Estab. % [facility] ACCOUNT BILL Lymphocytes % 26 Not Estab. % [facility] ACCOUNT BILL Monocytes % 7 Not Estab. % [facility] ACCOUNT BILL Eosinophils % 2 Not Estab. % [facility] ACCOUNT BILL Basophils % 1 Not Estab. % [facility] ACCOUNT BILL Immature Cells NOT AVAILABLE [facility] ACCOUNT BILL Comment:Result cannot be obt ained for this observation. Granulocytes Absolute 5.7 1.4 - 7.0 x10E3/uL [facility] ACCOUNT BILL Lymphocytes Absolute 2.3 0.7 - 3.1 x10E3/uL [facility] ACCOUNT BILL Monocytes Absolute 0.7 0.1 - 0.9 x10E3/uL [facility] ACCOUNT BILL Eosinophils Absolute 0.2 0.0 - 0.4 x10E3/uL [facility] ACCOUNT BILL Basophils Absolute 0.1 0.0 - 0.2 x10E3/uL [facility] ACCOUNT BILL Immature Granulocytes 0 Not Estab. % [facility] ACCOUNT BILL Immature Granulocytes Absolute 0.0 0.0 - 0.1 x10E3/uL [facility] ACCOUNT BILL nRBC NOT AVAILABLE [facility] ACCOUNT BILL Comment:Result cannot be obt ained for this observation. Comment Hematology NOT AVAILABLE [facility] ACCOUNT BILL Comment: Effective April 13, 2022 this profile will be discontinued. [facility] offers [id number] , Initial Screening Profile which aligns with current clinical guidelines and recommendations and incorporates reflex testing to support timely, quality care during . Result cannot be obtained for this observation. Blood BLOOD SPECIMEN / Unknown 02/23/2022 2:39 PM CDT 02/23/2022 Narrative Resulting Agency Comment Lab Testing performed at: [facility] [address] [facility] [id number] Den Rider MD LAB - CHEMISTRY ORDERABLES F inal Result [facility] ACCOUNT BILL [address] [place] [address] * HEPATITIS C ANTIBODY (02/23/2022 2:39 PM CDT) Hepatitis C Antibody Non Reactive Non Reactive [facility] ACCOUNT BILL Comment: HCV antibody alone does not differentiate between previously resolved infection and active infection. Equivocal and Reactive HCV antibody results should be followed up with an HCV RNA test to support the diagnosis of active HCV infection. FASTING Blood BLOOD SPECIMEN / Unknown 02/23/2022 2:39 PM CDT 09/14/2022 Narrative Resulting Agency Comment Lab Testing performed at: [facility] [address] [facility] [id number] Den Rider MD LAB - CHEMISTRY ORDERABLES F inal Result [facility] ACCOUNT BILL [address] [place] [address] from Last 3 Months or Most Recently Relevant to Health Maintenance Insurance [facility] * Guarantor: DEN PALMER Account Type Relation to Patient Date of Phone Billing Address Personal/Family 1990 [id number] [id number] Advance Directives * Full Code (Latest Code Status on File) Date Activated Date Inactivated Comments 09/23/2022 11:24 PM 09/26/2022 12:57 PM * Full Code Date Activated Date Inactivated Comments 09/19/2022 10:42 AM 09/19/2022 1:46 PM * Full Code Date Activated Date Inactivated Comments 09/07/2022 2:03 PM 09/07/2022 6:03 PM * Full Code Date Activated Date Inactivated Comments 08/16/2017 5:44 PM 08/19/2017 2:04 PM * Full Code Date Activated Date Inactivated Comments 08/16/2017 4:01 PM 08/16/2017 5:42 PM Care Teams Two [employer] 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 Relationship Specialty Start Date End Date Brian Bee MD [address] [place] [id number] PCP - General 08/26/08 Brian Bee MD [address] [place] [address] PCP - Attributed-[employer] 05/23/24 Den Rider MD [address] [place] [address] [place] [id number] Administrative Associate Obstetrics and Gynecology 11/03/10 Elva Farfan MD [address] [place] [address] [place] [id number] Armament Aircraft Mechanic Cardiovascular Disease 11/03/10 Farshad Warren MD [address] [place] [address] [place] [id number] Orthopedic Surgery 12/22/13 Renato Fernandez MD [address] [place] [address] [place] [id number] Orthopedic Surgery 11/02/14
--- NOTE | 2025-01-09 10:57 | ED_ITS ---
HPI - Skin/Abscess/Foreign Bdy General Chief complaint: Skin/Abscess/Foreign Body Stated complaint: Skin Time Seen by Provider: 01/09/25 10:57 Source: patient Mode of arrival: ambulatory Limitations: no limitations History of Present Illness HPI narrative: Liat is a 34-year-old female patient presenting to the clinic today with complaints of a red, raised, itchy rash on her feet, legs, abdomen, and back. She reports symptoms started 1 week ago. She has been applying some triamcinolone cream to the rash is getting worse. States the rash originally started on her feet and has gradually gone of her legs and now is on to her abdomen and back. States the rash is itchy. Is draining some clear discharge and some scattered areas. Related Data Home Medications ?Medication ?Instructions ?Recorded ?Confirmed ?Last Taken ?Type bupropion HCl 150 mg 24 hr tablet, mg PO 01/09/25 Unk nown History extended release buspirone 10 mg tablet mg 01/09/25 Unknown History dextroamphetamine-amphetamine 10 01/09/25 Unknown Hi story mg tablet norethindrone (contraceptive) 0.35 mg 01/09/25 Unknow n History mg tablet (Incassia) Allergies Allergy/AdvReac Type Severity Reaction Status Date / Time Penicillins Allergy Rash Verified 01/09/25 11:05 Review of Systems Review of Systems: Pertinent positives per HPI. Patient denies any fever, chills, headache, visual changes, dizziness, cough, runny nose, sore throat, shortness of breath, chest pain, palpitations, nausea, vomiting, diarrhea, constipation, abdominal pain, or any urinary issues. PMFSH Comments At the time of my signature, I reviewed and agree with the nursing past medical, surgical, social, and family history. There is no relevant family history per tinent to the patient complaint. Exam Narrative: General: Well-developed, well nourished, in no apparent distress Head: Normocephalic, atraumatic. Cardio: Regular rate and rhythm, s1 and s2 normal, no murmur appreciated. Resp: Clear to auscultation bilaterally, no rhonchi, rales, wheezing or rubs. Integumentary: [place], warm, and dry, red, raised, itchy rash with scattered blistering-clear drainage on her feet, legs, abdomen, and back. Course Course Emergency Course: Portions of this record may have been created with voice recognition software. Level of Care: Express Care Visit Vital Signs Vital signs: Vital Signs Temperature 36.7 C 01/09/25 11:04 Pulse Rate 77 01/09/25 11:04 Respiratory Rate 18 01/09/25 11:04 Blood Pressure 115/55 L 01/09/25 11:04 Pulse Oximetry 100 01/09/25 11:04 Oxygen Delivery Room Air 01/09/25 11:04 Temperature 36.7 C 01/09/25 11:04 Pulse Rate 77 01/09/25 11:04 Respiratory Rate 18 01/09/25 11:04 Blood Pressure 115/55 L 01/09/25 11:04 Pulse Oximetry 100 01/09/25 11:04 Oxygen Delivery Room Air 01/09/25 11:04 Vital signs reviewed MDM - Skin/Abscess/Foreign Bdy MDM Narrative Medical decision making narrative: At the time of visit patient is resting comfortably on the exam table. Patient appears to be nontoxic. Complaints of a red, raised, itchy rash on her feet, legs, abdomen, and back. She reports symptoms started 1 week ago. She has been applying some triamcinolone cream to the rash is getting worse. States the rash originally started on her feet and has gradually gone of her legs and now is on to her abdomen and back. States the rash is itchy. Is draining some clear discharge and some scattered areas. On exam patient has red, raised, itchy rash with blistering-clear drainage on her feet, legs, abdomen, and back. Denies any pain. Rash is not indurated a blanchable. Plan: I suspect patient has poison tessa dermatitis. Prescription for 10 day taper dose of prednisone was sent to the pharmacy. Patient may continue use of triamcinolone cream. Supportive measures were discussed with the patient and they voiced understanding discharge instructions and agrees to treatment plan. Return precautions reviewed Differential Diagnosis Differential diagnosis: Likely abscess of skin or subcutaneous tissue, viral exanthem, dermatophytosis, urticaria, herpes zoster, allergic reaction to drug, cellulitis, eczema, insect bites, impetigo and contact dermatitis Discharge Plan Discharge Clinical Impression: Allergic dermatitis due to poison tessa Patient Disposition: Home Condition: Stable Instructions: Antibiotic Form, Poison Tessa (ED) Additional Instructions: Apply triamcinolone cream as directed Take prednisone as directed Avoid hot showers May apply calamine lotion to rash Avoid scratching as this can cause a secondary infection May take benadryl 25-50mg every 6 hours as needed for itching. Follow up with your PCP in 3-5 days if symptoms persist or sooner if they worsen Go to the Emergency Room if symptoms worsen- fever, rash spreading with treatment, shortness of breath, tongue swelling, drooling, or chest pain Patient Language: Syrian Prescriptions: New prednisone 10 mg tablet 10 mg PO DAILY Qty: 30 0RF Rx Instructions: 60mg po daily on day 1, 40mg po daily on days 2-4, 30mg po daily on days 5-6, 20mg po daily on days 7-8, 10mg po daily on days 9-10 No Action dextroamphetamine-amphetamine 10 mg tablet buspirone 10 mg tablet norethindrone (contraceptive) [Incassia] 0.35 mg tablet bupropion HCl 150 mg tablet extended release 24 hr PO Follow-up/Referrals: UNKNOWN,DOCTOR [Non-Staff] Time of Disposition: 11:15 Quality NIHSS Nursing Documentation ED NIHSS nursing documentation: reviewed/agree
[2025-01-09 11:04] VITALS: BP 115/55; PULSE 77; RESP 18; TEMP 36.7; O2SAT 100
== END 2025-01-09 11:22 | disposition home or self-care (01) ==
PROVIDERS: Emergency Provider Nurse Practitioner Family
DX: L23.7 Allergic contact dermatitis due to plants, except food (principal); F41.9 Anxiety disorder, unspecified
CPT/HCPCS: 99203; G0463